=== PATIENT | male | born 1990 | race Caucasian/White ===

== ENCOUNTER 2021-06-28 06:37 | Inpatient (IN) | payer MEDICAID ==
[~2021-06-28] VITALS: Ht 188 cm; Wt 79.5 kg
[2021-06-28] MEDS ORDERED: BUPR1FIL3 SL (06:43)
[2021-06-28] MEDS ORDERED: LORA2I PO ×2 (07:36→07:46)
[2021-06-28] MEDS ORDERED: GABA-1216 PO (07:36)
[2021-06-28] MEDS ORDERED: LACT30L PO (07:36)
[2021-06-28] MEDS ORDERED: LITH300C3 PO (07:36)
[2021-06-28] MEDS ORDERED: FURO20 PO (07:36)
[2021-06-28] MEDS ORDERED: FERR-89 PO (07:36)
[2021-06-28] MEDS ORDERED: LEVO25TA9 PO (07:36)
[2021-06-28] MEDS ORDERED: SPIR50TA27 PO (07:46)
[2021-06-28] MEDS ORDERED: OLAN10TA74 PO (07:46)
[2021-06-28] MEDS ORDERED: MORP20CA18 PO (07:46)
[2021-06-28] MEDS ORDERED: PROP10TA73 PO (07:46)
[2021-06-28] MEDS ORDERED: TRAZ150T80 PO (07:46)
[2021-06-28] MEDS ORDERED: MESA250CR PO (07:46)
[2021-06-28] MEDS ORDERED: MOM30 PO (07:46)
[2021-06-28 08:07] LABS: BASOPHILS % (AUTO) 0.7 % (0.0-2.0); EOSINOPHILS % (AUTO) 3.5 % (1.0-6.0); HEMATOCRIT 24.5 % (41-53); LYMPHOCYTES # (AUTO) 0.7 K/uL (1.0-4.8); LYMPHOCYTES % (AUTO) 33.6 % (22.0-44.0); MEAN CORPUSCULAR HGB CONC 32.8 G/dL (31.0-37.0); MEAN CORPUSCULAR VOLUME 85 fL (80-100); MONOCYTES # (AUTO) 0.3 K/uL (0.1-1.0); MONOCYTES % (AUTO) 14.1 % (2.0-9.0); NEUTROPHILS # (AUTO) 0.9 K/uL (1.8-7.7); NEUTROPHILS % (AUTO) 48.1 % (40.0-70.0); PLATELET COUNT (AUTO) 83 K/uL (150-450); RED BLOOD CELL COUNT(AUTO) 2.87 MIL/uL (4.50-5.90); RED CELL DISTRIBUTION WIDTH 20.4 % (11.5-14.5)
[2021-06-28 08:08] LABS: ANION GAP 9 mmol/L (8-16); CALCIUM, TOTAL 8.7 mg/dL (8.8-10.5); CARBON DIOXIDE 23 mmol/L (22-29); CHLORIDE 110 mmol/L (98-107); CREATININE 0.69 mg/dL (0.60-1.30); GLOMERULAR FILTR. RATE CALC > 60 mL/min (>60); GLUCOSE,RANDOM 89 mg/dL (70-110); POTASSIUM 3.7 mmol/L (3.5-5.1); SODIUM SERUM 142 mmol/L (136-145); UREA NITROGEN, BLOOD 8 mg/dL (7-18)
[2021-06-28 08:13] LABS: ALANINE AMINOTRANSFERASE 18 U/L (12-78); ALBUMIN 3.1 g/dL (3.4-5.0); ALKALINE PHOSPHATASE 92 U/L (46-116); ASPARTATE AMINOTRANSFERASE 52 U/L (15-37); BILIRUBIN,TOTAL 1.5 mg/dL (0.1-1.0); LIPASE 93 U/L (73-393); TOTAL PROTEIN, SERUM 7.3 g/dL (6.4-8.2)
[2021-06-28 08:18] LABS: % IRON SATURATION 5.7 % (30-44); INR 1.5 (0.9-1.1); IRON, SERUM 19 mcg/dL (50-175); TOTAL IRON BINDING CAPACITY 328 mcg/dL (250-450)
[2021-06-28 08:23] LABS: AMMONIA 146 umol/L (11-32)
[2021-06-28 08:25] LABS: APPEARANCE,URINE CLOUDY (CLEAR); BILIRUBIN,URINE NEGATIVE (NEGATIVE); GLUCOSE, URINE (UA) NEGATIVE (NEGATIVE); KETONES,URINE NEGATIVE (NEGATIVE); LEUKOCYTE ESTERASE ,URINE NEGATIVE (NEGATIVE); NITRATE,URINE NEGATIVE (NEGATIVE); OCCULT BLOOD,URINE MODERATE (NEGATIVE); PROTEIN,URINE NEGATIVE (NEGATIVE)
[2021-06-28 08:29] LABS: AMPHET/METH SCREEN,URINE NEGATIVE (NEGATIVE); BARBITURATE SCREEN, URINE NEGATIVE (NEGATIVE); BENZODIAZEPINES SCREEN,URINE NEGATIVE (NEGATIVE); CANNABINOID SCREEN,URINE NEGATIVE (NEGATIVE); COCAINE SCREEN,URINE NEGATIVE (NEGATIVE); METHADONE SCREEN, URINE NEGATIVE (NEGATIVE); OPIATE SCREEN,URINE POSITIVE (NEGATIVE)
[2021-06-28 08:32] LABS: PHENCYCLIDINE SCREEN,URINE NEGATIVE (NEGATIVE)
[2021-06-28 08:33] LABS: B-TYPE NATRIURETIC PEPTIDE 76 pg/mL (0-100)
[2021-06-28 08:38] LABS: BACTERIA,URINE Few /HPF (None Seen); SQUAMOUS EPITHELIAL CELL,UR Few /LPF (None Seen); WBC,URINE None Seen /HPF (0-5)
[2021-06-28 08:40] LABS: LACTIC ACID 0.6 mmol/L (0.4-2.0)
[2021-06-28 08:54] LABS: COVID AG,FIA SOURCE NASAL SWAB
[2021-06-28] MEDS ORDERED: SODIUM CHLORIDE 0.9% 100 ML ONE (09:47)
[2021-06-28] MEDS ORDERED: IOHEXOL 350 MG/ML 150 ML VIAL ONE (09:47)
[2021-06-28] MEDS ORDERED: BARIUM SULFATE 0.1% SUSPENSION 450 ML BOTTLE PO ONE (10:15)
[2021-06-28] MEDS ORDERED: RIFAXIMIN 550 MG TABLET PO ONE (11:15)
[2021-06-28] MEDS ORDERED: LORA-999 PO (11:16)
[2021-06-28] MEDS ORDERED: 0.9% SODIUM CHLORIDE 10 ML SYRINGE IVP PRN (11:30)
[2021-06-28] MEDS ORDERED: TraZODone HCL 150 MG TABLET PO PRN (11:30)
[2021-06-28] MEDS ORDERED: LORazepam 0.5 MG TABLET PO PRN (11:30)
[2021-06-28] MEDS ORDERED: ONDANSETRON HCL 4 MG/2 ML VIAL IVP PRN (11:30)
[2021-06-28] MEDS: FUROSEMIDE 20 MG TABLET PO SCH (11:50)
[2021-06-28] MEDS ORDERED: LACTULOSE 20 GM/30 ML SOLUTION UDCUP PO ONE (13:00)
[2021-06-28 15:02] VITALS: BP 118/82
[2021-06-28] MEDS: MESALAMINE 250 MG PO SCH ×2 (16:00→21:00)
[2021-06-28] MEDS: MAGNESIUM HYDROXIDE SUSPENSION 30 ML UDCUP PO SCH (17:33)
[2021-06-28 19:20] VITALS: BP 140/55
[2021-06-28] MEDS ORDERED: LORazepam 0.5 MG TABLET PO ONE (20:00)
[2021-06-28 21:06] VITALS: BP 138/66
[2021-06-28] MEDS: GABAPENTIN 100 MG CAPSULE PO SCH (21:10)
[2021-06-28] MEDS: GABAPENTIN 400 MG CAPSULE PO SCH (21:11)
[2021-06-28] MEDS: PROPRANOLOL HCL 10 MG TABLET PO SCH (21:20)
[2021-06-29] MEDS: MAGNESIUM HYDROXIDE SUSPENSION 30 ML UDCUP PO SCH ×2 (00:18→08:37)
[2021-06-29 05:30] VITALS: BP 114/68
[2021-06-29] MEDS: LEVOTHYROXINE SODIUM 25 MCG TABLET PO SCH (06:42)
[2021-06-29 07:51] VITALS: BP 106/53
[2021-06-29] MEDS: FERROUS SULFATE 325 MG EC TABLET PO SCH (08:36)
[2021-06-29] MEDS: FUROSEMIDE 20 MG TABLET PO SCH (08:37)
[2021-06-29] MEDS: LACTULOSE 20 GM/30 ML SOLUTION UDCUP PO SCH (08:37)
[2021-06-29 09:00] VITALS: BP 119/81
[2021-06-29] MEDS: MESALAMINE 250 MG PO SCH ×4 (09:09→21:29)
[2021-06-29] MEDS: OLANZapine 10 MG TABLET PO SCH (09:09)
[2021-06-29] MEDS: LITHIUM CARBONATE 300 MG CAPSULE PO SCH (09:10)
[2021-06-29] MEDS: SPIRONOLACTONE 50 MG TABLET PO SCH (10:01)
[2021-06-29] MEDS: PROPRANOLOL HCL 10 MG TABLET PO SCH ×2 (10:01→21:30)
[2021-06-29 16:24] VITALS: BP 147/78
[2021-06-29] MEDS ORDERED: ONDA-104 PO (19:16)
[2021-06-29] MEDS ORDERED: HYOS0.127 PO (19:16)
[2021-06-29] MEDS ORDERED: PANT-31 PO (19:16)
[2021-06-29] MEDS ORDERED: MORP30TA71 PO (19:16)
[2021-06-29] MEDS ORDERED: BISA-151 PO (19:16)
[2021-06-29] MEDS ORDERED: NICO-650 TP (19:16)
[2021-06-29] MEDS ORDERED: ACET-2247 RC (19:16)
[2021-06-29 20:23] VITALS: BP 125/75
[2021-06-29] MEDS: GABAPENTIN 400 MG CAPSULE PO SCH (21:29)
[2021-06-29] MEDS: GABAPENTIN 100 MG CAPSULE PO SCH (21:29)
[2021-06-29] MEDS: LORazepam 2 MG TABLET PO PRN (21:30)
[2021-06-30 05:08] VITALS: BP 121/78
[2021-06-30] MEDS: LEVOTHYROXINE SODIUM 25 MCG TABLET PO SCH (06:11)
[2021-06-30 07:21] LABS: BASOPHILS % (AUTO) 0.4 % (0.0-2.0); EOSINOPHILS % (AUTO) 2.1 % (1.0-6.0); HEMATOCRIT 25.8 % (41-53); HEMOGLOBIN 8.5 g/dL (13.5-17.5); LYMPHOCYTES # (AUTO) 0.8 K/uL (1.0-4.8); LYMPHOCYTES % (AUTO) 24.6 % (22.0-44.0); MEAN CORPUSCULAR HEMOGLOBIN 27.6 pg (26.0-34.0); MEAN CORPUSCULAR HGB CONC 32.9 G/dL (31.0-37.0); MEAN CORPUSCULAR VOLUME 84 fL (80-100); MONOCYTES # (AUTO) 0.5 K/uL (0.1-1.0); MONOCYTES % (AUTO) 13.8 % (2.0-9.0); NEUTROPHILS % (AUTO) 59.1 % (40.0-70.0); PLATELET COUNT (AUTO) 88 K/uL (150-450); RED BLOOD CELL COUNT(AUTO) 3.08 MIL/uL (4.50-5.90); RED CELL DISTRIBUTION WIDTH 19.8 % (11.5-14.5)
[2021-06-30 08:03] VITALS: BP 120/81
[2021-06-30 08:07] LABS: ALANINE AMINOTRANSFERASE 15 U/L (12-78); ALBUMIN 2.9 g/dL (3.4-5.0); ALKALINE PHOSPHATASE 87 U/L (46-116); ANION GAP 10 mmol/L (8-16); ASPARTATE AMINOTRANSFERASE 41 U/L (15-37); BILIRUBIN,TOTAL 1.2 mg/dL (0.1-1.0); CALCIUM, TOTAL 8.9 mg/dL (8.8-10.5); CARBON DIOXIDE 20 mmol/L (22-29); CHLORIDE 110 mmol/L (98-107); CREATININE 0.66 mg/dL (0.60-1.30); GLOMERULAR FILTR. RATE CALC > 60 mL/min (>60); GLUCOSE,RANDOM 82 mg/dL (70-110); SODIUM SERUM 140 mmol/L (136-145); TOTAL PROTEIN, SERUM 7.1 g/dL (6.4-8.2); UREA NITROGEN, BLOOD 10 mg/dL (7-18)
[2021-06-30] MEDS: FERROUS SULFATE 325 MG EC TABLET PO SCH (09:36)
[2021-06-30] MEDS: LACTULOSE 20 GM/30 ML SOLUTION UDCUP PO SCH (09:37)
[2021-06-30] MEDS: SPIRONOLACTONE 50 MG TABLET PO SCH (09:37)
[2021-06-30] MEDS: FUROSEMIDE 20 MG TABLET PO SCH (09:38)
[2021-06-30] MEDS: MESALAMINE 250 MG PO SCH ×3 (09:38→16:37)
[2021-06-30] MEDS: LITHIUM CARBONATE 300 MG CAPSULE PO SCH (09:38)
[2021-06-30] MEDS: PROPRANOLOL HCL 10 MG TABLET PO SCH (09:38)
[2021-06-30] MEDS: OLANZapine 10 MG TABLET PO SCH (09:39)
[2021-06-30] MEDS: LORazepam 2 MG TABLET PO PRN ×2 (09:48→14:24)
[2021-06-30 16:00] VITALS: BP 119/58
== END 2021-06-30 17:50 | DRG 280 ==
LOC: EMS 06:45 → 6N 14:07
PROVIDERS: ADMIT Hospitalist; ATTEND Hospitalist
DX: K70.30 Alcoholic cirrhosis of liver without ascites (principal); D61.818 Other pancytopenia; K72.90 Hepatic failure, unspecified without coma; I85.10 Secondary esophageal varices without bleeding; R45.851 Suicidal ideations; Z20.822 Contact with and (suspected) exposure to COVID-19; K51.90 Ulcerative colitis, unspecified, without complications; F31.9 Bipolar disorder, unspecified; F41.9 Anxiety disorder, unspecified; Z79.899 Other long term (current) drug therapy
CPT/HCPCS: 71045; 74177; 80053; 81001; 82140; 82271; 83540; 83550; 83605; 83690; 83735; 83880; 84484; 85025; 85610; 85730; 93005; 99291; G0480; J7050; Q9967; 36415-L1; 36415-TC

== ENCOUNTER 2021-09-16 15:03 | Inpatient (IN) | payer MEDICAID ==
[~2021-09-16] VITALS: Ht 185.4 cm; Wt 82.2 kg
[~2021-09-16 15:03] MED LIST: ACET-2247 PO; BISA-151 PO; BUPR1FIL3 SL; FERR325T27 PO; FURO20 PO; GABA-1216 PO; HYOS0.127 PO; LACT10SO10 PO; LEVO25TA9 PO; LITH300C3 PO; LORA-999 PO; MESA250CR PO; MORP20CA16 PO; MORP30TA71 PO; NICO-650 TP; OLAN10TA74 PO; ONDA-104 PO; PANT-31 PO; PROP10TA73 PO; SPIR50TA27 PO; TRAZ150T80 PO
[2021-09-16 18:10] LABS: BASOPHILS % (AUTO) 0.6 % (0.0-2.0); EOSINOPHILS % (AUTO) 2.6 % (1.0-6.0); LYMPHOCYTES # (AUTO) 0.5 K/uL (1.0-4.8); LYMPHOCYTES % (AUTO) 12.1 % (22.0-44.0); MEAN CORPUSCULAR HEMOGLOBIN 30.5 pg (26.0-34.0); MEAN CORPUSCULAR HGB CONC 33.4 G/dL (31.0-37.0); MEAN CORPUSCULAR VOLUME 91 fL (80-100); MONOCYTES # (AUTO) 0.3 K/uL (0.1-1.0); MONOCYTES % (AUTO) 6.7 % (2.0-9.0); NEUTROPHILS # (AUTO) 3.4 K/uL (1.8-7.7); PLATELET COUNT (AUTO) 62 K/uL (150-450); RED BLOOD CELL COUNT(AUTO) 3.61 MIL/uL (4.50-5.90); RED CELL DISTRIBUTION WIDTH 17.1 % (11.5-14.5)
[2021-09-16 18:18] LABS: ANION GAP 9 mmol/L (8-16); CALCIUM, TOTAL 8.9 mg/dL (8.8-10.5); CARBON DIOXIDE 24 mmol/L (22-29); CHLORIDE 107 mmol/L (98-107); GLOMERULAR FILTR. RATE CALC > 60 mL/min (>60); GLUCOSE,RANDOM 87 mg/dL (70-110); POTASSIUM 3.5 mmol/L (3.5-5.1); SODIUM SERUM 140 mmol/L (136-145); UREA NITROGEN, BLOOD 5 mg/dL (7-18)
[2021-09-16 18:23] LABS: ALANINE AMINOTRANSFERASE 20 U/L (12-78); ALBUMIN 3.7 g/dL (3.4-5.0); ALKALINE PHOSPHATASE 177 U/L (46-116); ASPARTATE AMINOTRANSFERASE 47 U/L (15-37); BILIRUBIN,TOTAL 1.5 mg/dL (0.1-1.0)
[2021-09-16 18:24] LABS: LITHIUM 0.79 mmol/L (0.60-1.20)
[2021-09-16 18:39] LABS: AMPHET/METH SCREEN,URINE NEGATIVE (NEGATIVE); BARBITURATE SCREEN, URINE NEGATIVE (NEGATIVE); BENZODIAZEPINES SCREEN,URINE NEGATIVE (NEGATIVE); CANNABINOID SCREEN,URINE NEGATIVE (NEGATIVE); COCAINE SCREEN,URINE NEGATIVE (NEGATIVE); METHADONE SCREEN, URINE NEGATIVE (NEGATIVE); OPIATE SCREEN,URINE POSITIVE (NEGATIVE); PHENCYCLIDINE SCREEN,URINE NEGATIVE (NEGATIVE)
[2021-09-16 19:33] LABS: COVID AG,FIA SOURCE NASOPHARYNGEAL
[2021-09-16] MEDS ORDERED: IBUPROFEN 600 MG TABLET PO ONE (22:00)
[2021-09-17] MEDS: LORazepam 2 MG TABLET PO PRN ×2 (09:27→16:37)
[2021-09-17 10:40] VITALS: BP 138/82
[2021-09-17] MEDS ORDERED: GuaiFENesin/D-METHORPHAN [SUGAR-FREE] 200-20MG/10 ML SYRUP UDCUP PO PRN (11:00)
[2021-09-17] MEDS ORDERED: IBUPROFEN 400 MG TABLET PO PRN (11:00)
[2021-09-17] MEDS ORDERED: ALBUTEROL SULFATE HFA 90 MCG/PUFF 8 GM INHALER IH PRN (11:00)
[2021-09-17] MEDS ORDERED: MAGNESIUM HYDROXIDE SUSPENSION 30 ML UDCUP PO PRN (11:00)
[2021-09-17] MEDS ORDERED: MAG HYDROX/AL HYDROX/SIMETH ES 30 ML SUSPENSION UDCUP PO PRN (11:00)
[2021-09-17] MEDS ORDERED: ONDANSETRON HCL 4 MG TABLET PO PRN (11:00)
[2021-09-17] MEDS ORDERED: ACETAMINOPHEN 325 MG TABLET PO PRN (11:00)
[2021-09-17] MEDS ORDERED: PETROLATUM,WHITE 28 GM JELLY TP PRN (11:00)
[2021-09-17] MEDS ORDERED: DOCUSATE SODIUM 100 MG CAPSULE PO PRN (11:00)
[2021-09-17] MEDS ORDERED: LOPERAMIDE HCL 2 MG CAPSULE PO PRN (11:00)
[2021-09-17] MEDS ORDERED: CloNIDine HCL 0.1 MG TABLET PO PRN (11:00)
[2021-09-17] MEDS: MESALAMINE 250 MG PO SCH ×3 (12:39→20:28)
[2021-09-17] MEDS: HALOPERIDOL 5 MG TABLET PO PRN (16:38)
[2021-09-17 16:45] VITALS: BP 124/69
[2021-09-17] MEDS: GABAPENTIN 100 MG CAPSULE PO SCH (20:28)
[2021-09-17] MEDS: MIRTAZAPINE 15 MG TABLET PO SCH (20:28)
[2021-09-17] MEDS: GABAPENTIN 300 MG CAPSULE PO SCH (20:28)
[2021-09-18] MEDS: FERROUS SULFATE 325 MG EC TABLET PO SCH (06:35)
[2021-09-18] MEDS: LEVOTHYROXINE SODIUM 25 MCG TABLET PO SCH (06:35)
[2021-09-18 08:00] VITALS: BP 117/68
[2021-09-18] MEDS: MESALAMINE 250 MG PO SCH ×4 (08:32→20:04)
[2021-09-18] MEDS: FUROSEMIDE 20 MG TABLET PO SCH (08:32)
[2021-09-18] MEDS: SPIRONOLACTONE 50 MG TABLET PO SCH (08:33)
[2021-09-18] MEDS: LACTULOSE 20 GM/30 ML SOLUTION UDCUP PO SCH (08:33)
[2021-09-18] MEDS: LORazepam 2 MG TABLET PO PRN ×3 (08:36→17:42)
[2021-09-18 16:38] VITALS: BP 123/70
[2021-09-18] MEDS: GABAPENTIN 300 MG CAPSULE PO SCH (20:03)
[2021-09-18] MEDS: GABAPENTIN 100 MG CAPSULE PO SCH (20:03)
[2021-09-18] MEDS: MIRTAZAPINE 15 MG TABLET PO SCH (20:04)
[2021-09-18] MEDS: ZOLPIDEM TARTRATE 10 MG TABLET PO PRN (21:05)
[2021-09-19] MEDS: FERROUS SULFATE 325 MG EC TABLET PO SCH (06:35)
[2021-09-19] MEDS: LEVOTHYROXINE SODIUM 25 MCG TABLET PO SCH (06:35)
[2021-09-19 06:43] VITALS: BP 125/73
[2021-09-19] MEDS: LORazepam 2 MG TABLET PO PRN ×3 (06:43→17:39)
[2021-09-19 08:32] VITALS: BP 110/65
[2021-09-19] MEDS: SPIRONOLACTONE 50 MG TABLET PO SCH (08:42)
[2021-09-19] MEDS: FUROSEMIDE 20 MG TABLET PO SCH (08:42)
[2021-09-19] MEDS: MESALAMINE 250 MG PO SCH ×4 (08:43→20:05)
[2021-09-19] MEDS: MULTIVITAMINS WITH MINERALS, THERAPEUTIC TABLET PO SCH (08:43)
[2021-09-19] MEDS: LACTULOSE 20 GM/30 ML SOLUTION UDCUP PO SCH (08:43)
[2021-09-19] MEDS ORDERED: MESA500C PO (12:39)
[2021-09-19] MEDS: LIDOCAINE 2% 5 ML JELLY TP SCH (14:26)
[2021-09-19] MEDS: SILVER SULFADIAZINE 1% 25 GM CREAM TP SCH (14:27)
[2021-09-19 16:51] VITALS: BP 120/88
[2021-09-19] MEDS: MIRTAZAPINE 15 MG TABLET PO SCH (20:04)
[2021-09-19] MEDS: GABAPENTIN 300 MG CAPSULE PO SCH (20:04)
[2021-09-19] MEDS: GABAPENTIN 100 MG CAPSULE PO SCH (20:04)
[2021-09-19] MEDS: ZOLPIDEM TARTRATE 10 MG TABLET PO PRN (21:16)
[2021-09-20] MEDS: LORazepam 2 MG TABLET PO PRN ×3 (06:27→19:14)
[2021-09-20] MEDS: LEVOTHYROXINE SODIUM 25 MCG TABLET PO SCH (06:34)
[2021-09-20] MEDS: FERROUS SULFATE 325 MG EC TABLET PO SCH (06:34)
[2021-09-20] MEDS: FUROSEMIDE 20 MG TABLET PO SCH (08:08)
[2021-09-20] MEDS: MESALAMINE 250 MG PO SCH ×4 (08:08→20:35)
[2021-09-20] MEDS: MULTIVITAMINS WITH MINERALS, THERAPEUTIC TABLET PO SCH (08:08)
[2021-09-20] MEDS: SPIRONOLACTONE 50 MG TABLET PO SCH (08:08)
[2021-09-20] MEDS: LACTULOSE 20 GM/30 ML SOLUTION UDCUP PO SCH (08:10)
[2021-09-20] MEDS: NICOTINE 14 MG/24 HOUR PATCH TD PRN (11:05)
[2021-09-20 11:19] VITALS: BP 136/80
[2021-09-20] MEDS: LIDOCAINE 2% 5 ML JELLY TP SCH (13:21)
[2021-09-20] MEDS: SILVER SULFADIAZINE 1% 25 GM CREAM TP SCH (13:21)
[2021-09-20 16:00] VITALS: BP 152/81
[2021-09-20 19:14] VITALS: BP 142/71
[2021-09-20] MEDS: GABAPENTIN 100 MG CAPSULE PO SCH (20:36)
[2021-09-20] MEDS: MIRTAZAPINE 15 MG TABLET PO SCH (20:36)
[2021-09-20] MEDS: GABAPENTIN 300 MG CAPSULE PO SCH (20:36)
[2021-09-20] MEDS: ZOLPIDEM TARTRATE 10 MG TABLET PO PRN (21:05)
[2021-09-21] MEDS: LORazepam 2 MG TABLET PO PRN ×4 (06:11→23:11)
[2021-09-21] MEDS: FERROUS SULFATE 325 MG EC TABLET PO SCH (06:33)
[2021-09-21] MEDS: LEVOTHYROXINE SODIUM 25 MCG TABLET PO SCH (06:33)
[2021-09-21] MEDS: MESALAMINE 250 MG PO SCH ×4 (08:11→20:21)
[2021-09-21] MEDS: MULTIVITAMINS WITH MINERALS, THERAPEUTIC TABLET PO SCH (08:11)
[2021-09-21] MEDS: SPIRONOLACTONE 50 MG TABLET PO SCH (08:11)
[2021-09-21] MEDS: FUROSEMIDE 20 MG TABLET PO SCH (08:11)
[2021-09-21] MEDS: LACTULOSE 20 GM/30 ML SOLUTION UDCUP PO SCH (08:11)
[2021-09-21] MEDS: SILVER SULFADIAZINE 1% 25 GM CREAM TP SCH (10:02)
[2021-09-21] MEDS: LIDOCAINE 2% 5 ML JELLY TP SCH (10:02)
[2021-09-21] MEDS: NICOTINE 14 MG/24 HOUR PATCH TD PRN (10:03)
[2021-09-21 12:38] VITALS: BP 130/76
[2021-09-21 16:39] VITALS: BP 108/52
[2021-09-21 16:55] VITALS: BP 115/68
[2021-09-21] MEDS: GABAPENTIN 100 MG CAPSULE PO SCH (20:21)
[2021-09-21] MEDS: GABAPENTIN 300 MG CAPSULE PO SCH (20:21)
[2021-09-21] MEDS: MIRTAZAPINE 15 MG TABLET PO SCH (20:22)
[2021-09-21] MEDS: ZOLPIDEM TARTRATE 10 MG TABLET PO PRN (21:10)
[2021-09-21 23:11] VITALS: BP 109/70
[2021-09-22] MEDS: LORazepam 2 MG TABLET PO PRN ×3 (06:21→18:36)
[2021-09-22] MEDS: FERROUS SULFATE 325 MG EC TABLET PO SCH (06:32)
[2021-09-22] MEDS: LEVOTHYROXINE SODIUM 25 MCG TABLET PO SCH (06:32)
[2021-09-22 08:00] VITALS: BP 161/83
[2021-09-22] MEDS: MESALAMINE 250 MG PO SCH ×4 (08:17→20:09)
[2021-09-22] MEDS: MULTIVITAMINS WITH MINERALS, THERAPEUTIC TABLET PO SCH (08:17)
[2021-09-22] MEDS: FUROSEMIDE 20 MG TABLET PO SCH (08:17)
[2021-09-22] MEDS: LACTULOSE 20 GM/30 ML SOLUTION UDCUP PO SCH (08:17)
[2021-09-22] MEDS: SPIRONOLACTONE 50 MG TABLET PO SCH (08:17)
[2021-09-22] MEDS: LIDOCAINE 2% 5 ML JELLY TP SCH (08:18)
[2021-09-22] MEDS: SILVER SULFADIAZINE 1% 25 GM CREAM TP SCH (08:19)
[2021-09-22] MEDS ORDERED: TraMADol HCL 50 MG TABLET PO PRN (10:00)
[2021-09-22 10:54] LABS: COVID AG,FIA SOURCE NASAL SWAB
[2021-09-22 16:41] VITALS: BP 113/69
[2021-09-22] MEDS: GABAPENTIN 100 MG CAPSULE PO SCH (20:09)
[2021-09-22] MEDS: GABAPENTIN 300 MG CAPSULE PO SCH (20:09)
[2021-09-22] MEDS: MIRTAZAPINE 15 MG TABLET PO SCH (20:09)
[2021-09-22] MEDS: ZOLPIDEM TARTRATE 10 MG TABLET PO PRN (21:35)
[2021-09-23] MEDS: FERROUS SULFATE 325 MG EC TABLET PO SCH (06:39)
[2021-09-23] MEDS: LEVOTHYROXINE SODIUM 25 MCG TABLET PO SCH (06:39)
[2021-09-23 08:00] VITALS: BP 110/65
[2021-09-23] MEDS: MULTIVITAMINS WITH MINERALS, THERAPEUTIC TABLET PO SCH (08:06)
[2021-09-23] MEDS: MESALAMINE 250 MG PO SCH ×4 (08:06→20:17)
[2021-09-23] MEDS: FUROSEMIDE 20 MG TABLET PO SCH (08:06)
[2021-09-23] MEDS: SPIRONOLACTONE 50 MG TABLET PO SCH (08:06)
[2021-09-23] MEDS: LACTULOSE 20 GM/30 ML SOLUTION UDCUP PO SCH (08:08)
[2021-09-23] MEDS: HALOPERIDOL 5 MG TABLET PO PRN ×3 (08:08→20:46)
[2021-09-23] MEDS: LORazepam 2 MG TABLET PO PRN ×3 (08:13→16:21)
[2021-09-23] MEDS: SILVER SULFADIAZINE 1% 25 GM CREAM TP SCH (14:06)
[2021-09-23] MEDS: LIDOCAINE 2% 5 ML JELLY TP SCH (14:06)
[2021-09-23 16:00] VITALS: BP 120/69
[2021-09-23] MEDS: MIRTAZAPINE 15 MG TABLET PO SCH (20:17)
[2021-09-23] MEDS: GABAPENTIN 300 MG CAPSULE PO SCH (20:17)
[2021-09-23] MEDS: GABAPENTIN 100 MG CAPSULE PO SCH (20:17)
[2021-09-23] MEDS: ZOLPIDEM TARTRATE 10 MG TABLET PO PRN (20:46)
[2021-09-24] MEDS: FERROUS SULFATE 325 MG EC TABLET PO SCH (06:41)
[2021-09-24] MEDS: LEVOTHYROXINE SODIUM 25 MCG TABLET PO SCH (06:41)
[2021-09-24] MEDS: LORazepam 2 MG TABLET PO PRN ×4 (07:51→20:35)
[2021-09-24] MEDS: HALOPERIDOL 5 MG TABLET PO PRN ×3 (07:51→16:34)
[2021-09-24] MEDS: LACTULOSE 20 GM/30 ML SOLUTION UDCUP PO SCH (08:09)
[2021-09-24] MEDS: SPIRONOLACTONE 50 MG TABLET PO SCH (08:10)
[2021-09-24] MEDS: MULTIVITAMINS WITH MINERALS, THERAPEUTIC TABLET PO SCH (08:10)
[2021-09-24] MEDS: LIDOCAINE 2% 5 ML JELLY TP SCH (08:10)
[2021-09-24] MEDS: SILVER SULFADIAZINE 1% 25 GM CREAM TP SCH (08:10)
[2021-09-24] MEDS: FUROSEMIDE 20 MG TABLET PO SCH (08:10)
[2021-09-24] MEDS: MESALAMINE 250 MG PO SCH ×4 (08:10→20:10)
[2021-09-24 08:15] VITALS: BP 112/60
[2021-09-24 16:49] VITALS: BP 126/70
[2021-09-24 16:50] VITALS: BP 126/70
[2021-09-24] MEDS: ZOLPIDEM TARTRATE 10 MG TABLET PO PRN (20:10)
[2021-09-24] MEDS: MIRTAZAPINE 15 MG TABLET PO SCH (20:10)
[2021-09-24] MEDS: GABAPENTIN 100 MG CAPSULE PO SCH (20:10)
[2021-09-24] MEDS: GABAPENTIN 300 MG CAPSULE PO SCH (20:11)
[2021-09-25 05:08] VITALS: BP 139/76
[2021-09-25] MEDS: FERROUS SULFATE 325 MG EC TABLET PO SCH (06:43)
[2021-09-25] MEDS: LEVOTHYROXINE SODIUM 25 MCG TABLET PO SCH (06:43)
[2021-09-25] MEDS: NICOTINE 14 MG/24 HOUR PATCH TD PRN (07:15)
[2021-09-25] MEDS: LORazepam 2 MG TABLET PO PRN ×4 (07:16→20:42)
[2021-09-25 08:03] LABS: INR 1.5 (0.9-1.1); PROTHROMBIN TIME 15.4 SEC (9.4-11.6)
[2021-09-25 08:06] LABS: ALANINE AMINOTRANSFERASE 21 U/L (12-78); ALBUMIN 3.1 g/dL (3.4-5.0); ALKALINE PHOSPHATASE 137 U/L (46-116); ANION GAP 9 mmol/L (8-16); ASPARTATE AMINOTRANSFERASE 48 U/L (15-37); BILIRUBIN,TOTAL 0.8 mg/dL (0.1-1.0); CALCIUM, TOTAL 8.4 mg/dL (8.8-10.5); CARBON DIOXIDE 23 mmol/L (22-29); CHLORIDE 110 mmol/L (98-107); CREATININE 0.66 mg/dL (0.60-1.30); GLOMERULAR FILTR. RATE CALC > 60 mL/min (>60); GLUCOSE,RANDOM 86 mg/dL (70-110); POTASSIUM 4.1 mmol/L (3.5-5.1); SODIUM SERUM 142 mmol/L (136-145); UREA NITROGEN, BLOOD 11 mg/dL (7-18)
[2021-09-25 08:32] VITALS: BP 137/74
[2021-09-25] MEDS: SPIRONOLACTONE 50 MG TABLET PO SCH (08:46)
[2021-09-25] MEDS: MESALAMINE 250 MG PO SCH ×4 (08:46→20:15)
[2021-09-25] MEDS: FUROSEMIDE 20 MG TABLET PO SCH (08:47)
[2021-09-25] MEDS: MULTIVITAMINS WITH MINERALS, THERAPEUTIC TABLET PO SCH (08:47)
[2021-09-25] MEDS: LACTULOSE 20 GM/30 ML SOLUTION UDCUP PO SCH (08:47)
[2021-09-25] MEDS: HALOPERIDOL 5 MG TABLET PO PRN ×2 (12:08→16:22)
[2021-09-25] MEDS: LIDOCAINE 2% 5 ML JELLY TP SCH (14:08)
[2021-09-25] MEDS: SILVER SULFADIAZINE 1% 25 GM CREAM TP SCH (14:08)
[2021-09-25 16:36] VITALS: BP 134/63
[2021-09-25] MEDS: GABAPENTIN 300 MG CAPSULE PO SCH (20:15)
[2021-09-25] MEDS: GABAPENTIN 100 MG CAPSULE PO SCH (20:15)
[2021-09-25] MEDS: ZOLPIDEM TARTRATE 10 MG TABLET PO PRN (20:15)
[2021-09-25] MEDS: MIRTAZAPINE 15 MG TABLET PO SCH (20:17)
[2021-09-26 00:35] VITALS: BP 115/70
[2021-09-26] MEDS: HALOPERIDOL 5 MG TABLET PO PRN (00:45)
[2021-09-26] MEDS: FERROUS SULFATE 325 MG EC TABLET PO SCH (07:16)
[2021-09-26] MEDS: LEVOTHYROXINE SODIUM 25 MCG TABLET PO SCH (07:16)
[2021-09-26 08:42] VITALS: BP 116/63
[2021-09-26] MEDS: MULTIVITAMINS WITH MINERALS, THERAPEUTIC TABLET PO SCH (08:56)
[2021-09-26] MEDS: LORazepam 2 MG TABLET PO PRN (08:56)
[2021-09-26] MEDS: SPIRONOLACTONE 50 MG TABLET PO SCH (08:56)
[2021-09-26] MEDS: FUROSEMIDE 20 MG TABLET PO SCH (08:56)
[2021-09-26] MEDS: LACTULOSE 20 GM/30 ML SOLUTION UDCUP PO SCH (08:56)
[2021-09-26] MEDS: MESALAMINE 250 MG PO SCH ×2 (08:56→12:10)
[2021-09-26] MEDS ORDERED: MIRT-89 PO (11:52)
[2021-09-26] MEDS ORDERED: FURO20 PO (11:52)
[2021-09-26] MEDS ORDERED: LACT10SO10 PO (11:52)
[2021-09-26] MEDS ORDERED: GABA-1216 PO (11:52)
[2021-09-26] MEDS ORDERED: FERR325T27 PO (11:52)
[2021-09-26] MEDS ORDERED: LEVO25TA9 PO (11:52)
[2021-09-26] MEDS ORDERED: SPIR50TA27 PO (11:52)
[2021-09-26] MEDS ORDERED: GABA-1201 PO (11:52)
[2021-09-26] MEDS ORDERED: MESA500C PO (11:52)
[2021-09-26] MEDS: SILVER SULFADIAZINE 1% 25 GM CREAM TP SCH (12:11)
[2021-09-26] MEDS: LIDOCAINE 2% 5 ML JELLY TP SCH (12:11)
== END 2021-09-26 13:00 | disposition home or self-care (01) | DRG 751 ==
LOC: EMS 15:13 → 3EI 09-17 07:45
PROVIDERS: ADMIT Psychiatry & Neurology Child & Adolescent Psychiatry; ATTEND Psychiatry & Neurology Child & Adolescent Psychiatry
DX: F33.2 Major depressive disorder, recurrent severe without psychotic features (principal); D61.818 Other pancytopenia; E03.9 Hypothyroidism, unspecified; F10.10 Alcohol abuse, uncomplicated; F41.9 Anxiety disorder, unspecified; I10 Essential (primary) hypertension; F19.10 Other psychoactive substance abuse, uncomplicated; K51.90 Ulcerative colitis, unspecified, without complications; Z51.5 Encounter for palliative care; Z59.00 Homelessness unspecified; Z79.899 Other long term (current) drug therapy
CPT/HCPCS: 80053; 80178; 85025; 85610; 87081; 99285; G0480

== ENCOUNTER 2022-05-10 00:30 | Emergency (ER) | payer MEDICAID ==
[~2022-05-10] VITALS: Ht 185.4 cm; Wt 86.4 kg
[~2022-05-10 00:30] MED LIST changes: -ACET-2247 PO; -BISA-151 PO; -BUPR1FIL3 SL; +GABA-1201 PO; -HYOS0.127 PO; -LITH300C3 PO; -LORA-999 PO; -MESA250CR PO; +MESA500C PO; +MIRT-89 PO; -MORP20CA16 PO; -MORP30TA71 PO; -NICO-650 TP; -OLAN10TA74 PO; -ONDA-104 PO; -PANT-31 PO; -PROP10TA73 PO; -TRAZ150T80 PO
[2022-05-10 05:07] VITALS: BP 143/75
== END 2022-05-10 05:15 | disposition home or self-care (01) ==
LOC: EMS 00:31
DX: S60.221A Contusion of right hand, initial encounter (principal); M79.18 Myalgia, other site; F10.20 Alcohol dependence, uncomplicated; F41.9 Anxiety disorder, unspecified; F31.9 Bipolar disorder, unspecified; E03.9 Hypothyroidism, unspecified; K70.30 Alcoholic cirrhosis of liver without ascites; K51.90 Ulcerative colitis, unspecified, without complications; X58.XXXA Exposure to other specified factors, initial encounter; Y93.89 Activity, other specified; Y92.89 Other specified places as the place of occurrence of the external cause; Y99.8 Other external cause status
CPT/HCPCS: 99284; 73030-TC; 73090-TC; 73130-TC; Z7502